=== PATIENT | female | born 1980 | race African-American/Black ===

== ENCOUNTER 2021-07-18 14:48 | Emergency (ER) | payer OTHER, MEDICAID ==
[~2021-07-18] VITALS: Ht 170.2 cm; Wt 61.0 kg
[2021-07-18 15:29] VITALS: BP 113/50
[2021-07-18] MEDS ORDERED: DIPHENHYDRAMINE 25MG CAPSULE PO ONE (16:00)
[2021-07-18 16:01] LABS: CLARITY URINE TURBID (CLEAR); COLOR URINE YELLOW (YELLOW); KETONES URINE NEGATIVE (NEGATIVE); LEUKOCYTE ESTERASE URINE 1+ (NEGATIVE); NITRITE URINE NEGATIVE (NEGATIVE); OCCULT BLOOD URINE 2+ (NEGATIVE); PH URINE >=9.0 (4.5-8.0); PROTEIN URINE TRACE (NEGATIVE); UROBILINOGEN URINE 0.2 E.U./dL (0.2-1.0)
[2021-07-18 16:15] LABS: BASOPHILS % 0.4 % (0.0-2.0); EOSINOPHILS % 1.9 % (0.0-5.0); HEMATOCRIT. 38.8 % (36.0-48.0); HEMOGLOBIN. 12.4 g/dL (12.0-16.0); MEAN CORPUSCULAR HEMOGLOBIN 26.1 pg (28.0-32.0); MEAN CORPUSCULAR VOLUME 81.4 fL (81.0-99.0); MEAN PLATELET VOLUME 8.3 fl (7.4-10.4); NEUTROPHILS % 58.7 % (40.0-76.0); PLATELET 224 x1000/uL (130-400); RED BLOOD CELL COUNT 4.76 mill/uL (4.2-5.4); RED CELL DISTRIBUTION WIDTH 14.3 % (11.6-14.6)
[2021-07-18 16:22] LABS: CHLORIDE 109 mEq/L (98-107)
[2021-07-18 16:35] LABS: HCG SCREEN NEGATIVE
[2021-07-18] MEDS ORDERED: HYDR-3735 MT (16:51)
== END 2021-07-18 17:03 | disposition home or self-care (01) ==
LOC: ER 14:48
DX: L29.9 Pruritus, unspecified (principal); Z90.721 Acquired absence of ovaries, unilateral
CPT/HCPCS: 36415; 80053; 81003; 81025; 84703; 85025; 99283; Q0163